=== PATIENT | female | born 1970 | race African-American/Black ===

== ENCOUNTER 2018-07-03 14:57 | Emergency (ER) | payer MEDICAID ==
[~2018-07-03] VITALS: Ht 162.6 cm; Wt 57.0 kg
[2018-07-03] MEDS ORDERED: KETOROLAC 60MG/2ML VIAL IM STA (20:02)
[2018-07-03 22:47] VITALS: BP 154/95
== END 2018-07-03 22:49 | disposition home or self-care (01) ==
LOC: ER 14:57
DX: S83.91XA Sprain of unspecified site of right knee, initial encounter (principal); K21.9 Gastro-esophageal reflux disease without esophagitis; Z88.6 Allergy status to analgesic agent; X58.XXXA Exposure to other specified factors, initial encounter; Y93.89 Activity, other specified; Y92.89 Other specified places as the place of occurrence of the external cause; Y99.8 Other external cause status
CPT/HCPCS: 73560; 81025; 96372; 99283; J1885